=== PATIENT | female | born 1945 | race Caucasian/White ===

== ENCOUNTER → 2018-01-02 | Day surgery (SDC) | payer MEDICARE, OTHER, MEDICAID ==
[~2018-01-02] MED LIST: Lactated Ringers 1,000 ML IV SCH; Propofol 200 MG/20 ML SDV IV ONE
[2018-01-02 10:04] VITALS: BP 116/64
--- NOTE | 2018-01-05 08:31 | OR ---
DATE OF OPERATION: 01/02/2018 PREOPERATIVE DIAGNOSIS: DYSPHAGIA WITH ABNORMAL UPPER GI. POSTOPERATIVE DIAGNOSIS: 1. LARGE HIATAL HERNIA WITH TIGHT SCHATZKI'S RING. 2. GASTROESOPHAGEAL REFLUX DISEASE WITH ESOPHAGITIS, MINIMAL OR MILD. SURGEON: Wilberto Browning MD PROCEDURE: FULL-LENGTH ESOPHAGOGASTRODUODENOSCOPY WITH ESOPHAGEAL DILATATION. ANESTHESIA: SOLID DIE CUTTER due to advanced Parkinson's. COMPLICATIONS: None. SPECIMEN: None. FINDINGS: 1. Full-length EGD. 2. Large hiatal hernia with Schatzki's ring. 3. GERD with associated esophagitis. RECOMMENDATIONS: We dilated the patient at x3 up to 15 mm, she may need secondary dilatation pending on her results. We are going to start her on b.i.d. proton pump inhibitor. 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 DESCRIPTION OF PROCEDURE: The patient was prepped and draped, placed in the left lateral decubitus position. A lubricated Olympus gastroscope was inserted over a bit and easily intubated in the esophagus without difficulty. The esophagus was essentially benign. The Z-line was crisp and sharp around 35 cm. The patient has some very mild distal esophagitis, but no significant Mena's changes. There was a tighter Schatzki's ring associated with a very large hiatal hernia. The scope was easily passed into the stomach through the pylorus, into the second portion of duodenum, this and the duodenal bulb were benign. The stomach itself appears unremarkable without any signs of peptic ulcer disease, polyps, mass or otherwise. Upon retroflexion, the large hernia is easily visualized from below. We brought the scope back up into the distal esophagus, passed the balloon dilator, and dilated her to 13, 14, and 15 mm in sequential steps in usual fashion. She was pretty tight and we elected to only proceed with 3 dilatations for safety purposes so as not to tear the distal esophagus. Resolution of bleeding appeared spontaneous. The patient started having some coughing at that point. We did remove the scope to help facilitate removal of the balloon dilatator, and we elected not to reinsert for any biopsies due to her coughing at that time. The patient was stable in recovery room. RONALDO/SHAW /[id number]
== END ==
LOC: CC.SDS 07:56
PROVIDERS: ATTEND Family Medicine
DX: R13.10 Dysphagia, unspecified (principal); K22.2 Esophageal obstruction; K44.9 Diaphragmatic hernia without obstruction or gangrene; K21.0 Gastro-esophageal reflux disease with esophagitis; G20 Parkinson's disease; G47.00 Insomnia, unspecified; M19.90 Unspecified osteoarthritis, unspecified site; K59.00 Constipation, unspecified; F32.9 Major depressive disorder, single episode, unspecified; Z79.899 Other long term (current) drug therapy
CPT/HCPCS: 93005; J2704; J7120